=== PATIENT | female | born 2005 | race Caucasian/White ===

== ENCOUNTER 2024-05-19 14:40 | Emergency (ER) | payer MEDICAID ==
[~2024-05-19] VITALS: Ht 157.5 cm; Wt 77.1 kg
[2024-05-19 14:48] VITALS: O2SAT 100
[2024-05-19 14:59] VITALS: BP 115/62; PULSE 84; RESP 12; TEMP 98.1; O2SAT 99
[2024-05-19] MEDS ORDERED: IBUP-2029 MT (18:37)
[2024-05-19] MEDS: IBUPROFEN 600MG TABLET PO ONE (18:57)
[2024-05-19] MEDS: HYDROCODONE/ACETAMINOPHEN 10/325MG TABLET PO ONE (18:57)
== END 2024-05-19 19:01 | disposition home or self-care (01) ==
LOC: ER 14:40
DX: M25.462 Effusion, left knee (principal)
CPT/HCPCS: 73562; 99283